=== PATIENT | male | born 2000 | race Caucasian/White ===

== ENCOUNTER 2023-03-08 01:08 | Emergency (ER) | payer MEDICAID ==
[~2023-03-08] VITALS: Ht 170.2 cm; Wt 72.6 kg
[2023-03-08 01:39] VITALS: BP_SYST 108; PULSE 88; RESP 18; TEMP 98.3; O2SAT 100
[2023-03-08] MEDS ORDERED: DIPHTH,PERTUSS(ACELL),TET VAC 0.5 ML VIAL (Tdap) I.M. ONE (03:00)
[2023-03-08] MEDS ORDERED: BACITRACIN 1 GM OINT TP ONE (03:00)
[2023-03-08] MEDS ORDERED: BACI15OI13 TP (03:14)
[2023-03-08] MEDS ORDERED: IBUP-1969 PO (03:14)
[2023-03-08 03:35] VITALS: BP_SYST 112; PULSE 89; RESP 20; TEMP 97.8; O2SAT 98
== END 2023-03-08 03:35 | disposition home or self-care (01) ==
LOC: SED 01:08
DX: T22.211A Burn of second degree of right forearm, initial encounter (principal); T31.0 Burns involving less than 10% of body surface; Z79.899 Other long term (current) drug therapy; X08.8XXA Exposure to other specified smoke, fire and flames, initial encounter; Y93.89 Activity, other specified; Y92.89 Other specified places as the place of occurrence of the external cause; Y99.8 Other external cause status
CPT/HCPCS: 90715; 99283

== ENCOUNTER 2023-03-13 09:57 | Emergency (ER) | payer OTHER, MEDICAID ==
[~2023-03-13] VITALS: Ht 167.6 cm; Wt 72.6 kg
[~2023-03-13 09:57] MED LIST: BACI15OI13 TP; IBUP-1969 PO
[2023-03-13 10:08] VITALS: BP_SYST 115; PULSE 91; RESP 20; TEMP 98.3; O2SAT 98
[2023-03-13 10:28] VITALS: BP_SYST 116; PULSE 87; RESP 16; O2SAT 96
[2023-03-13 10:29] LABS: BASOPHILS % (AUTO) 0.5 % (0.0-2.0); EOSINOPHILS # (AUTO) 0.4 K/uL (0.0-0.4); EOSINOPHILS % (AUTO) 4.1 % (0.0-4.0); HEMOGLOBIN 17.4 g/dL (14.0-18.0); LYMPHOCYTES # (AUTO) 2.5 K/uL (1.0-5.5); LYMPHOCYTES % (AUTO) 24.1 % (20.5-51.5); MEAN CORPUSCULAR HEMOGLOBIN 30 pg (27-31); MEAN CORPUSCULAR HGB CONC 34 % (32-36); MEAN CORPUSCULAR VOLUME 91 fL (79.0-98.0); MONOCYTES # (AUTO) 0.8 K/uL (0.0-1.0); MONOCYTES % (AUTO) 7.6 % (1.7-9.3); NEUTROPHILS # (AUTO) 6.5 K/uL (1.8-7.7); NEUTROPHILS % (AUTO) 63.7 % (40.0-70.0); PLATELET COUNT (AUTO) 328 K/uL (130-430); RED BLOOD CELL COUNT(AUTO) 5.72 MIL/uL (4.2-6.2); RED CELL DISTRIBUTION WIDTH 13.2 % (9.0-15.0); WHITE BLOOD COUNT (AUTO) 10.2 K/uL (4.8-10.8)
[2023-03-13 10:41] LABS: CALCIUM 9.8 mg/dL (8.4-11.0); POTASSIUM 3.9 mmol/L (3.5-5.1)
[2023-03-13 10:55] LABS: ALBUMIN 4.3 g/dL (3.4-4.8); TOTAL BILIRUBIN 0.9 mg/dL (0.0-1.0)
[2023-03-13] MEDS ORDERED: NEOM28.37 TP (11:16)
[2023-03-13] MEDS ORDERED: ALPR0.5T PO (11:16)
== END 2023-03-13 11:39 | disposition home or self-care (01) ==
LOC: SED 09:57
DX: T22.611A Corrosion of second degree of right forearm, initial encounter (principal); Z79.899 Other long term (current) drug therapy; X08.8XXA Exposure to other specified smoke, fire and flames, initial encounter; Y93.89 Activity, other specified; Y92.89 Other specified places as the place of occurrence of the external cause; Y99.8 Other external cause status
CPT/HCPCS: 36415; 80053; 83605; 85025; 99283